=== PATIENT | female | born 1995 | race African-American/Black ===

== ENCOUNTER 2017-12-24 02:07 | Emergency (ER) | payer MEDICAID ==
[~2017-12-24] VITALS: Ht 172.7 cm; Wt 59.0 kg
[2017-12-24] MEDS ORDERED: ACETAMINOPHEN 325MG TABLET PO ONE (07:45)
[2017-12-24] MEDS ORDERED: IBUPROFEN 800MG TABLET PO ONE (07:45)
[2017-12-24 08:50] VITALS: BP 116/58
== END 2017-12-24 08:53 | disposition home or self-care (01) ==
LOC: ER 02:07
DX: S00.83XA Contusion of other part of head, initial encounter (principal); J45.909 Unspecified asthma, uncomplicated; F17.210 Nicotine dependence, cigarettes, uncomplicated; Y08.89XA Assault by other specified means, initial encounter; Y93.89 Activity, other specified; Y92.89 Other specified places as the place of occurrence of the external cause; Y99.8 Other external cause status
CPT/HCPCS: 99283; Z7610